=== PATIENT | female | born 1940 | race Caucasian/White ===

== ENCOUNTER 2024-01-18 16:00 | Inpatient (IN) | payer MEDICARE ==
[~2024-01-18] VITALS: Ht 157.5 cm; Wt 73.1 kg
[2024-01-18 17:11] VITALS: PULSE 69
[2024-01-18 18:59] VITALS: BP 142/63; PULSE 68; RESP 17; TEMP 97.8; O2SAT 90
[2024-01-18 19:00] VITALS: PULSE 69
[2024-01-18] MEDS ORDERED: DEXTROSE 50%-WATER SYRINGE IV PRN (19:00)
[2024-01-18] MEDS ORDERED: TYLENOL PO PRN (19:00)
[2024-01-18] MEDS ORDERED: ULTRAM PO PRN (19:00)
[2024-01-18] MEDS: CATAPRES PO SCH (20:24)
[2024-01-18] MEDS: COLACE PO SCH (20:30)
[2024-01-19 06:21] LABS: ANION GAP 13.4; BUN/CREATININE RATIO 16.8 (10.0-20.0); CALCIUM 9.7 mg/dL (8.4-10.5); CARBON DIOXIDE 31.3 mmol/L (20.0-32); CREATININE SERUM 1.19 mg/dL (0.59-1.40); EST GFR, NON-AA 43.1 (>/=60); POTASSIUM 3.7 mmol/L (3.6-5.2)
[2024-01-19 08:00] VITALS: PULSE 69; RESP 17; O2SAT 50; O2SAT 51
[2024-01-19] MEDS: HUMALOG SQ SCH (08:00)
[2024-01-19 08:23] VITALS: BP 168/63; PULSE 89; RESP 20; TEMP 98.9; O2SAT 88
[2024-01-19] MEDS: LASIX PO SCH (08:32)
[2024-01-19] MEDS: TOPROL XL PO SCH (08:32)
[2024-01-19] MEDS: NORVASC PO SCH (08:33)
[2024-01-19] MEDS: KLOR-CON 10 PO SCH (08:33)
[2024-01-19] MEDS: NON-FORMULARY MEDICATION 1 EA EA PO SCH (08:35)
[2024-01-19] MEDS: PROTONIX PO SCH ×2 (08:37)
[2024-01-19 19:32] VITALS: BP 141/55; PULSE 70; RESP 18; TEMP 98.8
[2024-01-19 21:00] VITALS: PULSE 70; RESP 18; O2SAT 96
[2024-01-20 07:52] VITALS: BP 144/58; PULSE 71; RESP 19; TEMP 98.5; O2SAT 92
[2024-01-20 09:16] VITALS: PULSE 74; RESP 18; O2SAT 92
[2024-01-20 15:46] VITALS: PULSE 74; RESP 18; O2SAT 92
== END 2024-01-20 15:18 | disposition swing bed (61) | DRG 562 ==
LOC: SBU 16:00
PROVIDERS: ADMIT Internal Medicine; ATTEND Internal Medicine
DX: S42.391A Other fracture of shaft of right humerus, initial encounter for closed fracture (principal); S72.051A Unspecified fracture of head of right femur, initial encounter for closed fracture; E11.9 Type 2 diabetes mellitus without complications; W18.39XA Other fall on same level, initial encounter; I10 Essential (primary) hypertension; Y93.89 Activity, other specified; Y92.89 Other specified places as the place of occurrence of the external cause; Y99.8 Other external cause status; Z87.891 Personal history of nicotine dependence
CPT/HCPCS: 36415; 80048; 82948; 97166; 97530; J1815; J3490; 97535-GO